=== PATIENT | male | born 1990 | race Two or more races ===

== ENCOUNTER 2017-12-16 15:41 | Inpatient (IN) | payer OTHER ==
[~2017-12-16] VITALS: Ht 182.9 cm; Wt 90.8 kg
[2017-12-16] MEDS ORDERED: SODIUM CHLORIDE 0.9% 500 ML IV ONE (16:48)
[2017-12-16] MEDS ORDERED: KETOROLAC TROMETH 30 MG/ML 1ML VIAL IV ONE (17:00)
[2017-12-16] MEDS: KETOROLAC TROMETH 30 MG/ML 1ML VIAL IV PRN ×2 (17:26→23:29)
[2017-12-16] MEDS ORDERED: ONDANSETRON HCL 4 MG/2 ML VIAL IV PRN (18:00)
[2017-12-16] MEDS: PANTOPRAZOLE 40 MG/10 ML VIAL IV SCH (18:26)
[2017-12-16] MEDS: ENOXAPARIN SOD 40 MG/0.4 ML SYRINGE SC SCH (18:26)
[2017-12-16 18:54] VITALS: BP 129/72
[2017-12-16] MEDS: HYDROcodone-ACET 10/325MG TAB PO PRN (21:28)
[2017-12-16 22:00] VITALS: BP 126/68
[2017-12-17 05:00] VITALS: BP 107/60
[2017-12-17] MEDS: KETOROLAC TROMETH 30 MG/ML 1ML VIAL IV PRN ×2 (08:00→14:21)
[2017-12-17 08:56] VITALS: BP 124/67
[2017-12-17 10:13] VITALS: BP 124/67
[2017-12-17] MEDS: ENOXAPARIN SOD 40 MG/0.4 ML SYRINGE SC SCH (10:39)
[2017-12-17] MEDS: PANTOPRAZOLE 40 MG/10 ML VIAL IV SCH (10:39)
[2017-12-17] MEDS: HYDROcodone-ACET 10/325MG TAB PO PRN (10:40)
[2017-12-17 12:28] VITALS: BP 126/63
== END 2017-12-17 14:20 | DRG 563 ==
LOC: EEVIPCON 15:49 → ER 15:49 → TELE 15:50 → EAST 17:46
PROVIDERS: ADMIT Internal Medicine; ATTEND Internal Medicine
PROC: 2W3BX1Z Immobilization of Left Upper Arm using Splint (ICD-10-PCS; principal; 2017-12-16)
DX: S42.332A Displaced oblique fracture of shaft of humerus, left arm, initial encounter for closed fracture (principal); W18.39XA Other fall on same level, initial encounter; Y93.67 Activity, basketball; Y92.89 Other specified places as the place of occurrence of the external cause; Y99.8 Other external cause status; Z83.3 Family history of diabetes mellitus; F12.90 Cannabis use, unspecified, uncomplicated; Z72.89 Other problems related to lifestyle
CPT/HCPCS: 73060; 94761; 96361; 96372; 96374; C9113; J1885

== ENCOUNTER 2018-01-20 08:40 | Day surgery (SDC) | payer OTHER ==
[~2018-01-20] VITALS: Ht 182.9 cm; Wt 90.7 kg
[2018-01-20 10:42] LABS: Basophils # (auto) 0 uL; Basophils % (auto) 0.8 % (0.0-2.0); Eosinophils # (auto) 0 uL; Eosinophils % (auto) 0.6 % (0.0-7.0); Hematocrit 45.1 % (41.0-53.0); Hemoglobin 15.1 g/dL (13.5-17.5); Lymphocytes # (auto) 1.9 uL; Lymphocytes % (auto) 32.8 % (10.0-50.0); Mean Corpuscular Hemoglobin 30.6 pg (28.0-32.0); Mean Corpuscular Hgb Conc. 33.4 g/dL (32.0-36.0); Mean Corpuscular Volume 91.5 fL (80.0-100.0); Monocytes # (auto) 0.4 uL; Monocytes % (auto) 6.5 % (0.0-12.0); Neutrophils # (auto) 3.5 uL; Neutrophils % (auto) 59.3 % (37.0-80.0); Nucleated Red Blood Cells % 0.1 %; Platelet Count (auto) 206 10^3/uL (140-450); Red Blood Cells 4.94 10^6/uL (4.5-5.90); Red Cell Distribution Width 13.4 % (11.8-14.3); White Blood Cell 5.9 10^3/uL (4.4-10.8)
[2018-01-20 10:56] LABS: INR 0.98 (0.9-1.15); Prothrombin Time 10.5 sec (9.27-12.13)
[2018-01-20] MEDS ORDERED: fentaNYL CITRATE 10 ML ONE (10:57)
[2018-01-20] MEDS ORDERED: MIDAZOLAM HCL 1MG/1ML-2 ML VIAL ONE (10:57)
[2018-01-20] MEDS ORDERED: fentaNYL CITRATE 100 MCG/2 ML VL ONE (10:57)
[2018-01-20] MEDS ORDERED: ROCURONIUM 10MG/ML 10ML VIAL IV ONE (10:57)
[2018-01-20] MEDS ORDERED: SODIUM CHLORIDE LOCK 10 ML ONE (10:58)
[2018-01-20] MEDS ORDERED: PROPOFOL 10 MG/ML 20 ML IV ONE (10:58)
[2018-01-20] MEDS ORDERED: METOCLOPRAMIDE HCL 5MG/ml INJ 2ml VIAL ONE (10:58)
[2018-01-20 11:01] LABS: Potassium 4.1 mmol/L (3.5-5.1)
[2018-01-20 11:06] LABS: BUN/Creatinine Ratio 19.1; Calcium 9.1 mg/dL (8.5-10.1)
[2018-01-20] MEDS ORDERED: LIDOCAINE W/ EPINEPHRINE 2% INJ 20ML VIAL ONE (11:41)
[2018-01-20] MEDS ORDERED: ROPIVACAINE 0.5% (5MG/ML) 20ML AMPULE IJ ONE (11:41)
[2018-01-20] MEDS ORDERED: METOCLOPRAMIDE HCL 5MG/ml INJ 2ml VIAL IV ONE (12:15)
[2018-01-20] MEDS ORDERED: KETOROLAC TROMETH 30 MG/ML 1ML VIAL IV ONE (12:15)
[2018-01-20] MEDS ORDERED: SUCCINYLCHOLINE CHLORIDE 20 MG/ML 10ML VIAL IV ONE (12:33)
[2018-01-20] MEDS ORDERED: ceFAZolin 1GM/50ML 100 ML IV ONE (12:42)
[2018-01-20] MEDS ORDERED: fentaNYL CITRATE 100 MCG/2 ML VL IV ONE (13:00)
[2018-01-20] MEDS ORDERED: GLYCOPYRROLATE 0.2 MG/ML 1ML VIAL ONE (13:18)
[2018-01-20] MEDS ORDERED: NEOSTIGMINE 1 MG/ML INJ (10mg/10ML VIAL) ONE (13:18)
[2018-01-20] MEDS ORDERED: KETOROLAC TROMETH 60MG/2ML VIAL IM ONE (13:18)
[2018-01-20] MEDS ORDERED: ceFAZolin 1GM/50ML 50 ML IV ONE ×2 (14:45)
[2018-01-20] MEDS ORDERED: MEPERIDINE HCL (25 MG/ML) 1ML VIAL IV ONE (14:49)
[2018-01-20] MEDS ORDERED: MEPERIDINE HCL (25 MG/ML) 1ML VIAL ONE (15:02)
[2018-01-20 16:08] VITALS: BP 145/72
== END 2018-01-20 17:36 | disposition home or self-care (01) ==
LOC: SUR 08:40
PROVIDERS: ATTEND Orthopaedic Surgery Adult Reconstructive Orthopaedic Surgery
DX: S42.302A Unspecified fracture of shaft of humerus, left arm, initial encounter for closed fracture (principal); Y93.64 Activity, baseball; Y93.89 Activity, other specified; Y92.89 Other specified places as the place of occurrence of the external cause; Y99.8 Other external cause status
CPT/HCPCS: 24515; 36415; 73060; 76000; 80048; 85025; 85610; 85730; J0330; J0690; J1885; J2175; J2250; J2704; J2765; J2795; J3010